=== PATIENT | male | born 1980 | race Caucasian/White ===

== ENCOUNTER 2017-10-07 12:36 | Inpatient (IN) | payer BC, OTHER ==
[~2017-10-07] VITALS: Ht 180.3 cm; Wt 95.3 kg
[2017-10-07 12:55] VITALS: BP 126/65
--- NOTE | 2017-10-07 12:55 | NUR ---
Pre-admission Note: Client is seen in intake at this time. Noted with poor eye contact and malodorous breath. He was noted with slurred speech and unsteady gait. He states "I've been drinking too much." He reports no allergies to food or any medication. Denies any seizure history. Denies any past medical hx. VS stable: Temp 98.1, Pulse 89, RR 17, BP 126/65, PL 0/10. Patient appears severely intoxicated at this time. CIWA deferred due to patient's level of intoxication without s/s of withdrawal due to recent alcohol use. Addendum: 10/07/17 at 1557 by TERRELL PARKER LVN No AV hallucinations noted. Denies S/I or H/I. Able to ambulate with unsteady gait. Dr. Tsang made aware of patient's current condition at this time.
[2017-10-07] MEDS ORDERED: ONDANSETRON 4 MG/2 ML VIAL IM PRN (13:30)
[2017-10-07] MEDS ORDERED: ONDANSETRON ODT 4 MG TAB.RAPDIS SL PRN (13:30)
[2017-10-07] MEDS ORDERED: MIRALAX 17 GM POWD.PACK PO PRN (13:30)
[2017-10-07] MEDS ORDERED: ACETAMINOPHEN 325 MG TABLET PO PRN (13:30)
[2017-10-07] MEDS: THIAMINE HCL 100 MG TABLET PO SCH (13:30)
[2017-10-07] MEDS ORDERED: LOPERAMIDE HCL 2 MG CAPSULE PO PRN ×2 (13:30)
[2017-10-07] MEDS ORDERED: MAG HYDROX/AL HYDROX/SIMETH 30 ML LIQUID UDC PO PRN (13:30)
[2017-10-07] MEDS ORDERED: MAGNESIUM HYDROXIDE 30 ML LIQUID UDC PO PRN (13:30)
[2017-10-07] MEDS ORDERED: LORAZEPAM 1 MG TABLET PO PRN (13:30)
[2017-10-07] MEDS ORDERED: LORAZEPAM 2 MG/1 ML VIAL IM PRN (13:30)
--- NOTE | 2017-10-07 13:42 | NUR ---
Admission Note: Admitted a 37 year old male for medically supervised withdrawal from ETOH. Patient is alert and oriented x 4. Denies S/i or H/I noted. He has poor eye contact with slurred speech. Breath is odorous from ETOH. Respirations even and unlabored. No SOB noted. Skin warm and dry to touch. Body search done. No contraband was found. Noted with abrasions on patient's palms from a fall he sustained at home. No s/s of infection noted. Abdomen soft and non-distended. BS (+) in all 4 quadrants. No complains of N/V/D or constipation noted. Voids independently. Gait is unsteady at this time. Patient denies any past medical hx. Reports NKA. Wishes to be FULL CODE. Follows a regular diet at home. He denies any seizure history and no history of substance abuse in the family. He reports that his alcohol use has impaired his relationship with his family that negatively impacts his quality of life. He appears severely intoxicated with no s/s of withdrawal at this time. He denies having a PCP and is not prescribed any medications at home. He achieved 4 months of sobriety but relapsed 2 weeks ago. Substance Use: ETOH - since 19 years old. Patient drinks 750 ml of Vodka daily x 2 weeks. Last use day of admission. He reports that he drank "3 glasses of vodka and 1 bottle of beer." Treatment History: Patient reports that he has been to multiple treatments in the past for the same substance. Last one was at [facility] in January 2017. Dr. Tsang aware of patient's current condition. Admission orders were entered and orders were carried out.
--- NOTE | 2017-10-07 14:00 | NUR ---
Nursing Note: Patient is currently laying in bed with eyes closed. Arousable when his name is called. Breathing even and unlabored.
[2017-10-07 16:00] VITALS: BP 145/95
--- NOTE | 2017-10-07 16:00 | NUR ---
[facility] assessment: Patient is laying in bed with eyes closed. RR 16. Appears in deep sleep. No evidence of withdrawal noted. Addendum: 10/07/17 at 1626 by TERRELL PARKER LVN Amended: Links added.
--- NOTE | 2017-10-07 17:00 | NUR ---
Behavior Note: Patient was notified that he needed to get his blood drawn for labs per MD orders. Patient stated that he would comply. When control clerk subassembly came into the unit, patient became agitated and refused blood draw. Nurse came into his room and explained the reason and benefits of getting his blood drawn, patient all of a sudden stood up from a sitting position and walked towards nurse and became threatening. Patient was encouraged to calm down and step back. He complied. Patient verbalized that he was worried about his insurance deductible and copays. His concerns were directed to the front desk administrator, Jag, who was able to calm him down. Will monitor closely and offer support.
[2017-10-07] MEDS: CLONIDINE HCL 0.1 MG TABLET PO PRN (17:27)
[2017-10-07] MEDS: IBUPROFEN 400 MG TABLET PO PRN (17:27)
--- NOTE | 2017-10-07 17:27 | NUR ---
Clonidine 0.1mg/Motrin PO given: Patient noted with BP 145/95, pulse 92. Complains of generalized body pain of 6/10. Medicated patient with Clonidine 0.1mg PO and Motrin as ordered. Will monitor for effectiveness.
--- NOTE | 2017-10-07 18:27 | NUR ---
Re-assessment: Clonidine and Motrin Patient's blood pressure 132/85. PRN Clonidine was effective in reducing his blood pressure. PRN Motrin was effective in reducing body aches. PL 2/10.
[2017-10-07 18:34] LABS: BASOPHILS # (AUTO) 0.1 K/uL (0.0-8.0); BASOPHILS % (AUTO) 0.9 % (0.0-2.0); EOSINOPHILS # (AUTO) 0.2 K/uL (0.0-0.7); EOSINOPHILS % (AUTO) 2.8 % (0.0-7.0); HEMATOCRIT 44.4 % (36.7-47.1); LYMPHOCYTES % (AUTO) 47.4 % (20.5-51.5); MEAN CORPUSCULAR HEMOGLOBIN 26.8 uug (23.8-33.4); MEAN CORPUSCULAR HGB CONC 34 g/dL (32.5-36.3); MEAN CORPUSCULAR VOLUME 79.5 fL (73.0-96.2); MONOCYTES # (AUTO) 0.6 K/uL (2.0-10.0); MONOCYTES % (AUTO) 9.4 % (0.0-11.0); NEUTROPHILS # (AUTO) 2.5 K/uL (1.8-8.9); NEUTROPHILS % (AUTO) 39.5 % (38.5-71.5); PLATELET COUNT (AUTO) 238 K/uL (152-348); RED BLOOD CELL COUNT(AUTO) 5.58 MIL/uL (4.06-5.63); WHITE BLOOD COUNT (AUTO) 6.3 K/uL (3.6-10.2)
[2017-10-07 18:49] LABS: BILIRUBIN,TOTAL 0.2 mg/dL (0.2-1.0); CREATININE 1.2 mg/dL (0.6-1.3); MAGNESIUM 2.2 mg/dL (1.8-2.4); POTASSIUM 3.8 mmol/L (3.5-5.1); TOTAL PROTEIN, SERUM 7.4 g/dL (6.4-8.2)
--- NOTE | 2017-10-07 19:05 | NUR ---
End of Shift Notes: Patient is on PRN Ativan at this time to manage symptoms related to ETOH withdrawal. VS monitored closely. BP at 1727 was 145/95, requiring patient to be medicated with Clonidine 0.1mg PO with help after 1 hour. Patient was anxious, agitated and appeared upset and expressed anger by being verbally threatening at times. Reassurance was provided. Patient still appears intoxicated with no evidence of withdrawal. Medicated patient with Motrin as ordered for generalized body ache at 1727 with help after 1 hour. All needs met and attended. Will continue to monitor.
--- NOTE | 2017-10-07 19:12 | NUR ---
Start of shift note Received report from day shift nurse. Pt is a 37 yo male, A+Ox4, presenting to [facility] for ETOH withdrawal. Pt noted to be very anxious, agitated, restless, angry, and with depressed demeanor. Pt is on PRN Ativan until further evaluation by MD. Respirations even and unlabored. Will continue to monitor.
[2017-10-07 20:08] VITALS: BP 111/68
[2017-10-07 20:54] LABS: *AMPHETAMINE, URINE NEGATIVE (NEGATIVE); *BARBITURATE, URINE NEGATIVE (NEGATIVE); *CANNABINOID, URINE NEGATIVE (NEGATIVE); *COCCAINE, URINE NEGATIVE (NEGATIVE); *OPIATE, URINE NEGATIVE (NEGATIVE); *PHENCYCLIDINE SCREEN,URINE NEGATIVE (NEGATIVE)
[2017-10-07] MEDS: LORAZEPAM 1 MG TABLET PO PRN (21:35)
--- NOTE | 2017-10-07 21:35 | NUR ---
PRN Ativan 2mg Pt c/o anxiety and noted with CIWA: 14. PRN Ativan 2mg given and tolerated well. Will reassess within 1 HR. Will continue to monitor.
--- NOTE | 2017-10-07 22:30 | NUR ---
PRN Ativan 2mg Reassessment Medication effective. Pt expresses reduction in anxiety and noted with CIWA: 10. No s/s of ASE noted at this time. Respirations even and unlabored. Will continue to monitor.
[2017-10-08 00:51] VITALS: BP 138/84
[2017-10-08 04:30] VITALS: BP 130/77
--- NOTE | 2017-10-08 06:59 | NUR ---
End of shift note Pt was continuously noted to be agitated, anxious, restless, and having depressed demeanor. Pt remained in room for majority of shift except to go smoke on smoking patio and to get food from kitchen. Pt was given PRN Ativan 2mg @2135. Pt slept for a total of 9 HRS. Last CIWA: 10 @0400. Respirations even and unlabored. Will endorse to day shift nurse.
[2017-10-08 08:00] VITALS: BP 129/90
--- NOTE | 2017-10-08 08:05 | NUR ---
START OF SHIFT: RECEIVED PT LAYING IN BED A/O X 4. HE PRESENTS WITH ANXIOUS MOOD AND GUARDED AFFECT.TREMORS NOTED. PT IS FLUSHED. HE REPORTS ANXIETY, RESTLESSNESS ,POOR APPETITE AND IRRITABILITY.TRICIA 13. PRN ATIVAN 2 MG PO GIVEN. WILL MONITOR EFFECTIVENESS. ENCOURAGED REST AND INCREASED FLUIDS. WILL CONTINUE TO MONITOR AND OFFER SAFE AND SUPPORTIVE ENVIRONMENT Addendum: 10/08/17 at 1743 by CRISTELA HELLER RN PRN MOTRIN PT ALSO REPORTED BODY ACHES.
[2017-10-08] MEDS: FOLIC ACID 1 MG TABLET PO SCH (08:48)
[2017-10-08] MEDS: IBUPROFEN 400 MG TABLET PO PRN (08:48)
[2017-10-08] MEDS: MULTIVITAMINS,THERAPEUTIC TABLET PO SCH (08:51)
[2017-10-08] MEDS: THIAMINE HCL 100 MG TABLET PO SCH (08:51)
[2017-10-08] MEDS: LORAZEPAM 1 MG TABLET PO PRN (08:52)
[2017-10-08] MEDS ORDERED: TUBERCULIN,PURIF.PROT.DERIV. 5 TU/0.1 ML TEST ID ONE (09:00)
--- NOTE | 2017-10-08 09:05 | NUR ---
PRN MOTRIN EFFECTIVE FOR BODY ACHES. HE STATES HE FEELS A BIT BETTER.
[2017-10-08 12:00] VITALS: BP 111/69
[2017-10-08] MEDS ORDERED: NEOMY/BACITRAC/POLYMI OINT 28.35 GM TUBE TOP PRN (14:00)
[2017-10-08] MEDS: LORAZEPAM 1 MG TABLET PO SCH ×2 (14:28→20:48)
[2017-10-08 16:00] VITALS: BP 136/95
[2017-10-08] MEDS ORDERED: CLON0.1T14 PO (16:57)
[2017-10-08] MEDS ORDERED: IBUP-1953 PO (16:57)
[2017-10-08] MEDS ORDERED: DIPH50CA37 PO (16:57)
--- NOTE | 2017-10-08 18:49 | NUR ---
END OF SHIFT: PT STARTED ATIVAN TAPER TODAY. LAST CIWA 13. HE REPORTS ANXIETY,SWEATS,RESTLESSNESS,POOR APPETITE,WEAKNESS,IRRITABILITY AND SENSITIVITY TO NOISE AND LIGHT. PRN ATIVAN GIVEN THIS AM PRIOR TO TAPER STARTING. HE WAS COMPLIANT WITH REST AND INCREASED FLUIDS ENCOURAGED. HE REFUSED PPD. WILL PASS SHIFT REPORT TO ONCOMING NIGHT NURSE.
--- NOTE | 2017-10-08 19:14 | NUR ---
Start of shift note Received report from day shift nurse. Pt is a 37 yo male, A+Ox4, presenting to [facility] for ETOH withdrawal. Pt noted with agitation, restlessness, depressed demeanor, and anxiety. Pt is on 3 day Ativan taper, tolerated well. Respirations even and unlabored. Will continue to monitor.
[2017-10-08 20:08] VITALS: BP 131/76
[2017-10-08] MEDS: diphenhydrAMINE 50 MG CAPSULE PO PRN (20:52)
--- NOTE | 2017-10-08 20:52 | NUR ---
PRN Benadryl Pt c/o inability to sleep and requested for PRN Benadryl. Medication given and tolerated well. Will reassess within 1 HR. Will continue to monitor.
--- NOTE | 2017-10-08 21:50 | NUR ---
PRN Benadryl Reassessment Medication ineffective. Pt is still awake and restless. No s/s of ASE noted at this time. Respirations even and unlabored. Will continue to monitor.
[2017-10-08] MEDS: CLONIDINE HCL 0.1 MG TABLET PO PRN (22:34)
--- NOTE | 2017-10-08 22:34 | NUR ---
PRN Clonidine Pt noted with b/p= 142/84. PRN Clonidine given and tolerated well. Will reassess within 1 HR. Will continue to monitor.
--- NOTE | 2017-10-08 23:30 | NUR ---
PRN Clonidine Reassessment Medication effective. b/p= 129/82. No s/s of ASE noted at this time. Respirations even and unlabored. Will continue to monitor.
[2017-10-09 00:11] VITALS: BP 119/68
[2017-10-09 04:25] VITALS: BP 127/74
--- NOTE | 2017-10-09 06:59 | NUR ---
End of shift note Pt was continuously noted to be anxious, restless, agitated, and having depressed demeanor. Pt remained in room for majority of shift except to get food from kitchen and to go smoke on smoking patio. Pt is on 3 day Ativan taper, tolerated well. Pt was given PRN Benadryl @2051 and PRN Clonidine @2233. Pt slept for a total of 8 HRS. Last CIWA: 9 @0400. Respirations even and unlabored. Will endorse to day shift nurse.
--- NOTE | 2017-10-09 07:49 | NUR ---
Start of Shift Notes: Received endorsement from night nurse. Patient is a 37 year old male admitted for ETOH withdrawal. Placed on a 3-day Ativan taper. Tolerating well. No adverse reactions noted. Patient received in his room. Alert and oriented x 4. Denies S/I or H/I. No AV hallucinations noted. Appears irritable and agitated due to his withdrawal symptoms. He verbalizes complains of anxiety. Educated patient on the current plan of care for the day and his medication regimen. Encouraged oral fluid intake and encouraged group participation to learn new skills to prevent relapse. Will continue to monitor.
[2017-10-09 08:00] VITALS: BP 132/77
[2017-10-09] MEDS: THIAMINE HCL 100 MG TABLET PO SCH (08:48)
[2017-10-09] MEDS: LORAZEPAM 1 MG TABLET PO SCH ×3 (08:48→21:46)
[2017-10-09] MEDS: FOLIC ACID 1 MG TABLET PO SCH (08:48)
[2017-10-09] MEDS: MULTIVITAMINS,THERAPEUTIC TABLET PO SCH (08:48)
[2017-10-09 12:00] VITALS: BP 112/70
[2017-10-09 13:15] LABS: HEPATITIS B SURFACE AG Negative (Negative)
--- NOTE | 2017-10-09 13:30 | NUR ---
Mid Shift Notes: Patient is in his room, eating his lunch. Denies any pain at this time. CIWA 9 at 1200. Encouraged to attend group and activities.
[2017-10-09 16:00] VITALS: BP 135/93
--- NOTE | 2017-10-09 19:01 | NUR ---
End of Shift Notes: Patient continues to be on 3-day Ativan taper as ordered. No adverse reactions noted. Patient is tolerating taper well. VS monitored closely. No significant abnormalities noted. Withdrawal symptoms were closely monitored. Initial CIWA 11, patient presented with anxiety, agitation, sweats, and tremors. Last CIWA 9. Per patient, Ativan has been effective in reducing his withdrawal symptoms. Patient has been withdrawn and isolates self for most of the day. Slept for most of the day. Does not participate in group. Compliant with care and treatment. All needs met and attended. Will continue to monitor closely.
--- NOTE | 2017-10-09 19:30 | NUR ---
START of shift note : Patient is a 37 year male, admitted for medically supervised withdrawal from ETOH/Vodka on 10/07/2017, pt. is on 3 Day Ativan taper. Patent reports NKA, is on Full Code, Regular Diet, is on Fall and Seizures Precautions. Pt is currently in the activity room watching TV, anxious, sad facial impression. Skin is intact. warm and dry to touch. He complains difficulty falling and staying asleep, increased level of anxiety, flashes time to time. Encouraged patient to participate in all unit activities and socializing more with other clients. Las CIWA=9 at 16:00. Safety measures in place : bed on lowest position with side rails x2 up for safety, all light within reach. Will continue to monitor closely and offer help.
[2017-10-09 20:00] VITALS: BP 118/77
--- NOTE | 2017-10-09 21:00 | NUR ---
PRN BENADRYL Pt. complains of difficulty falling asleep, insomnia. PRN BENADRYL given as ordered. Safety measures in place : bed on lowest position with side rails x2 up for safety, call light within reach. Will continue to monitor closely and offer help.
[2017-10-09] MEDS: diphenhydrAMINE 50 MG CAPSULE PO PRN (21:46)
--- NOTE | 2017-10-09 22:00 | NUR ---
RE-ASSESSMENT CHRISSY Pt. is sleeping, RR=16, unlabored and even . Safety measures in place : bed on lowest position with side rails x2 up for safety, call light within reach. Will continue to monitor closely and offer help.
--- NOTE | 2017-10-10 06:45 | NUR ---
END of shift note : Patient is a 37 year male, admitted for medically supervised withdrawal from ETOH/Vodka on 10/07/2017, pt. is on 3 Day Ativan taper. Patent reports NKA, is on Full Code, Regular Diet, is on Fall and Seizures Precautions. PRN given during night warehouse selector : BENADRYL. CIWA taken when pt. was awake, last CIWA=7 at 04:00 . Pt. slept all night through. [id number]=[id number], voided x1, slept=7 hours. Safety measures in place : bed on lowest position with side rails x2 up for safety, all light within reach. Will continue to monitor closely and offer help.
--- NOTE | 2017-10-10 07:40 | NUR ---
START OF SHIFT NOTE Received report from night nurse, 37 year old male admitted for ETOH withdrawal. Patient continues on Ativan taper tolerating well. Per endorsement patient received PRN Benadryl effective per night nurse, last CIWA score 9, slept for 7 hours. Received patient awake, alert and oriented x4, educated regarding plan of care and medication regimen with good verbal understanding. Patient deniers any SI/HI, patient appears anxious due to withdrawal, denies any hallucinations. Schedule medications due. Safety measures in place. will continue to monitor.
[2017-10-10 08:00] VITALS: BP 139/89
[2017-10-10] MEDS: MULTIVITAMINS,THERAPEUTIC TABLET PO SCH (08:27)
[2017-10-10] MEDS: THIAMINE HCL 100 MG TABLET PO SCH (08:27)
[2017-10-10] MEDS: FOLIC ACID 1 MG TABLET PO SCH (08:28)
[2017-10-10] MEDS ORDERED: LORAZEPAM 1 MG TABLET PO SCH (09:00)
[2017-10-10 12:00] VITALS: BP 125/84
[2017-10-10 16:00] VITALS: BP 137/83
--- NOTE | 2017-10-10 19:13 | NUR ---
END OF SHIFT NOTE Gave report to night nurse, patient presented with anxiety, agitation. Patient was given scheduled medications. Patient able to consumed 100% of his meals. Vital signs WNL. Patient set for d/c in AM. Encourage pt to develop coping skills and utilization of non pharmacological intervention. Patient was encouraged to participates in groups therapy session. Encourage diversional activities to alleviate anxiety. Patient noted participating in groups and activities. Patient denies any SI/HI. Safety measures in place. Patient endorsed to night nurse in stable condition.
--- NOTE | 2017-10-10 19:30 | NUR ---
START of shift note : Patient is a 37 year male, admitted for medically supervised withdrawal from ETOH/Vodka on 10/07/2017, pt.was on 3 Day Ativan taper. Patent reports NKA, is on Full Code, Regular Diet, is on Fall and Seizures Precautions. No PRNs given during a day shift . CIWA taken when pt. was awake, last CIWA=6 at 16:00 . Pt. complains of insomnia and increased level of anxiety. Encouraged to attend group and participate in activities after detox . Instructed patient to maintain adequate fluid and nutritional intake. Pt. will be D/C tomorrow in A.M. . Safety measures in place : bed on lowest position with side rails x2 up for safety, all light within reach. Will continue to monitor closely and offer help.
[2017-10-10 20:00] VITALS: BP 133/85
[2017-10-10] MEDS: diphenhydrAMINE 50 MG CAPSULE PO PRN (21:15)
--- NOTE | 2017-10-11 06:41 | NUR ---
END of shift note : Patient is a 37 year male, admitted for medically supervised withdrawal from ETOH/Vodka on 10/07/2017, pt.was on 3 Day Ativan taper. Patent reports NKA, is on Full Code, Regular Diet, is on Fall and Seizures Precautions. PRN given during rolling down machine operator : BENADRYL. CIWA taken when pt. was awake, last CIWA=15 at 04:00 . Ebbyme=[id number], voided x1, slept=5 hours. Pt. went to smoke at 05:00 A.M. Pt. will be D/C today in A.M. Safety measures in place : bed on lowest position with side rails x2 up for safety, all light within reach. Will continue to monitor closely and offer help.
--- NOTE | 2017-10-11 07:30 | NUR ---
START OF SHIFT NOTE Received report from night nurse, 37 year old male admitted for ETOH withdrawal. Patient completed his Ativan taper tolerated well. Per endorsement patient received PRN Benadryl effective per night nurse, last CIWA score 5, slept for 5 hours. Received patient awake, alert and oriented x4, educated regarding plan of care and rehab with good verbal understanding. Patient deniers any SI/HI, Patient is alert awake oriented x4. denies any hallucinations. Schedule medications due. Safety measures in place. will continue to monitor.
[2017-10-11 08:00] VITALS: BP 120/65
[2017-10-11] MEDS: FOLIC ACID 1 MG TABLET PO SCH (08:12)
[2017-10-11] MEDS: MULTIVITAMINS,THERAPEUTIC TABLET PO SCH (08:12)
[2017-10-11] MEDS: THIAMINE HCL 100 MG TABLET PO SCH (08:12)
--- NOTE | 2017-10-11 09:00 | NUR ---
DISCHARGE NOTE Patient has been discharged from [facility] Patient is in Stable condition, VS WNL. Denies suicidal and homicidal ideations at this time. All documentation has been completed, paperwork signed and dated. Pt left with all of his belongings, medications and prescriptions. Pt has been discharged from [facility] on 10/11/17 at 0900. has been Notified.
== END 2017-10-11 09:00 | disposition home or self-care (01) | DRG 895 ==
LOC: SRC 13:04
PROVIDERS: ADMIT Internal Medicine; ATTEND Internal Medicine
PROC: HZ2ZZZZ Detoxification Services for Substance Abuse Treatment (ICD-10-PCS; principal; 2017-10-07)
PROC: HZ31ZZZ Individual Counseling for Substance Abuse Treatment, Behavioral (ICD-10-PCS; 2017-10-10)
PROC: HZ41ZZZ Group Counseling for Substance Abuse Treatment, Behavioral (ICD-10-PCS; 2017-10-10)
DX: F10.239 Alcohol dependence with withdrawal, unspecified (principal); I15.9 Secondary hypertension, unspecified; K70.10 Alcoholic hepatitis without ascites; F17.211 Nicotine dependence, cigarettes, in remission; Y90.5 Blood alcohol level of 100-119 mg/100 ml; Z91.89 Other specified personal risk factors, not elsewhere classified; R26.81 Unsteadiness on feet; R73.9 Hyperglycemia, unspecified
CPT/HCPCS: 36415; 70030-TC; 80307; 80346; 83735; 85025; 86592; 86705; 86803; 87340; 87806; A4663; G0480; Q0163